=== PATIENT | male | born 1990 | race Caucasian/White ===

== ENCOUNTER 2021-04-29 14:42 | Emergency (ER) | payer SELFPAY ==
[~2021-04-29] VITALS: Ht 172.7 cm; Wt 79.4 kg
[2021-04-29 14:45] VITALS: BP_SYST 145
[2021-04-29] MEDS ORDERED: VIS50 PO (15:20)
[2021-04-29] MEDS ORDERED: TRIA80OI TP (15:20)
[2021-04-29] MEDS ORDERED: PRED50TA PO (15:20)
[2021-04-29] MEDS ORDERED: CEPH500C2 PO (15:20)
[2021-04-29 15:26] VITALS: BP_SYST 145
== END 2021-04-29 15:26 | disposition home or self-care (01) ==
LOC: SED 14:42
DX: H60.11 Cellulitis of right external ear (principal); Z79.899 Other long term (current) drug therapy
CPT/HCPCS: 99283